=== PATIENT | female | born 1950 | race Caucasian/White ===

== ENCOUNTER → 2023-12-08 07:40 | Outpatient (CLI) | payer MEDICARE, SELFPAY ==
--- NOTE | 2023-12-08 07:42 | DI.MG.S_ITS ---
BILATERAL DIGITAL SCREENING MAMMOGRAM 3D/2D WITH CAD: 12/08/2023 CLINICAL: Routine screening. Family history of breast cancer. Comparison is made to exams dated: 06/12/2022 mammogram, 06/11/2021 mammogram, and 06/10/2020 mammogram - Outside facility. The breasts are heterogeneously dense, which may obscure small masses (category c / 51-75% glandular tissue). Current study was also evaluated with a Computer Aided Detection (CAD) system. There is a possible developing irregular high density asymmetry in the right breast posterior depth superior region seen on the mediolateral oblique view only. This is more prominent. No other significant masses, calcifications, or other findings are seen in either breast. IMPRESSION: INCOMPLETE: NEED ADDITIONAL IMAGING EVALUATION The possible developing irregular high density asymmetry in the right breast most likely is fibroglandular tissue and is indeterminate. Additional views with possible ultrasound are recommended. Based on the Tyrer Cuzick model (a risk assessment model) the patient's lifetime risk is 8.1% and her 10 year risk is 7.3%. According to the ACR, ACS, and NCCN guidelines, an annual breast MRI exam along with mammogram is recommended if the patient's lifetime risk is 20% or greater. This exam was interpreted at Station ID: [id number]. NOTE: For mammograms, a report in lay terms will be sent to the patient. Approximately 15% of breast malignancies will not be visualized mammographically. In the management of a palpable breast mass, a negative mammogram must not discourage biopsy of a clinically suspicious lesion. Electronically Signed By: Cher coleman/susan:12/08/2023 13:15:05 letter sent: Additional Imaging Needed ACR BI-RADS Category 0: Incomplete: Need Additional Imaging Evaluation 3340F
== END ==
PROVIDERS: PCP Family Medicine; Referring Provider Family Medicine; Visit Provider Family Medicine
DX: Z12.31 Encounter for screening mammogram for malignant neoplasm of breast (principal); Z80.3 Family history of malignant neoplasm of breast; R92.333 Mammographic heterogeneous density, bilateral breasts
CPT/HCPCS: 77063; 77067

== ENCOUNTER → 2023-12-20 08:28 | Outpatient (CLI) | payer MEDICARE, SELFPAY ==
--- NOTE | 2023-12-20 08:29 | DI.US.S_ITS ---
LIMITED ULTRASOUND OF RIGHT BREAST: 12/20/2023 CLINICAL: Patient returns today to evaluate a focal asymmetry in the right breast. Comparison is made to exams dated: 12/20/2023 mammogram, 12/08/2023 mammogram - [facility], 06/12/2022 mammogram, 06/11/2021 mammogram, 06/10/2020 mammogram, and 06/09/2019 mammogram - Outside facility. Real-time ultrasound of the right breast 10-11 o'clock region was performed. Bruce scale images of the real-time examination were reviewed. Confirmatory ultrasound demonstrates no sonographic abnormality at 10 and 11 o'clock, 6 cm from the nipple. IMPRESSION: NEGATIVE Superimposition of normal breast tissue with confirmatory negative ultrasound. No sonographic or mammographic evidence of malignancy. A 1 year screening mammogram is recommended. Findings and recommendations were conveyed to the patient during today's evaluation. This exam was interpreted at Station ID: [id number]. Electronically Signed By: January Clements M.D., Ph.D. eb/:12/20/2023 10:49:42 letter sent: Normal Exam ACR BI-RADS Category 1: Negative
--- NOTE | 2023-12-20 08:29 | DI.MG.S_ITS ---
UNILATERAL RIGHT DIGITAL DIAGNOSTIC MAMMOGRAM 3D/2D WITH ADDITIONAL VIEWS: 12/20/2023 CLINICAL: Additional evaluation requested from prior study. Comparison is made to exams dated: 12/08/2023 mammogram - [facility], 06/12/2022 mammogram, and 06/11/2021 mammogram - Outside facility. The breasts are heterogeneously dense, which may obscure small masses (category c / 51-75% glandular tissue). The asymmetry seen on recent screening mammogram did not persist with additional imaging and likely represents superimposition of normal breast tissue. No other significant masses, calcifications, or other findings are seen in the breast. IMPRESSION: INCOMPLETE: NEED ADDITIONAL IMAGING EVALUATION Probable superimposition of normal breast tissue. Recommend further evaluation with targeted breast ultrasound, which will immediately follow this exam. Based on the Tyrer Cuzick model (a risk assessment model) the patient's lifetime risk is 8.1% and her 10 year risk is 7.3%. According to the ACR, ACS, and NCCN guidelines, an annual breast MRI exam along with mammogram is recommended if the patient's lifetime risk is 20% or greater. This exam was interpreted at Station ID: [id number]. NOTE: For mammograms, a report in lay terms will be sent to the patient. Approximately 15% of breast malignancies will not be visualized mammographically. In the management of a palpable breast mass, a negative mammogram must not discourage biopsy of a clinically suspicious lesion. Electronically Signed By: January Clements M.D., Ph.D. eb/:12/20/2023 09:22:52 ACR BI-RADS Category 0: Incomplete: Need Additional Imaging Evaluation
== END ==
PROVIDERS: PCP Family Medicine; Referring Provider Family Medicine; Visit Provider Family Medicine
DX: R92.8 Other abnormal and inconclusive findings on diagnostic imaging of breast (principal); R92.333 Mammographic heterogeneous density, bilateral breasts
CPT/HCPCS: 76642; 77065; G0279

== ENCOUNTER → 2024-04-19 11:30 | Outpatient (CLI) | payer MEDICARE, SELFPAY ==
--- NOTE | 2024-04-19 11:31 | DI.RAD.S_ITS ---
PROCEDURE: XR HIP W PEL IF DONE RT 2V INDICATIONS: Upper back right hip pain; chronic low back pain TECHNIQUE: 2 views of the hip were acquired. COMPARISON: None. FINDINGS: Bones: No fractures or dislocations. No suspicious bony lesions. The visualized pelvic ring appears intact. Nonuniform joint space narrowing and osteophytic lipping of the acetabuli. Synovial herniation pit of the right femoral neck. Soft tissues: No suspicious soft tissue calcifications or masses. IMPRESSION: Mild bilateral hip osteoarthritis. Dictated by: Maxime Mcgovern M.D. on 04/19/2024 at 13:21 Approved by: Maxime Mcgovern M.D. on 04/19/2024 at 13:21
== END ==
PROVIDERS: PCP Family Medicine; Referring Provider Family Medicine; Visit Provider Family Medicine
DX: M54.9 Dorsalgia, unspecified (principal); M25.559 Pain in unspecified hip; G89.29 Other chronic pain; M16.0 Bilateral primary osteoarthritis of hip
CPT/HCPCS: 73502

== ENCOUNTER → 2024-04-20 07:00 | Outpatient (CLI) | payer MEDICARE, SELFPAY ==
[2024-04-20 07:29] LABS: Add Manual Diff / Slide Review NO; Basophils Absolute Auto 100 /uL (0-100); Basophils Percent Auto 1.5 % (0-2); Eosinophils Absolute Auto 100 /uL (0-450); Eosinophils Percent Auto 1.8 % (2-4); Hematocrit 36.4 % (36-46); Hemoglobin 12.3 g/dL (12.0-16.0); Lymphocytes Absolute Auto 1000 /uL (1100-4500); Lymphocytes Percent Auto 23.7 % (25-40); Mean Corpuscular HGB Conc 33.7 % (30-36); Mean Corpuscular Hemoglobin 32.4 PG (26-34); Mean Corpuscular Volume 96.2 fL (80-100); Monocytes Absolute Auto 400 /uL (0-900); Monocytes Percent Auto 9.8 % (3-14); Neutrophils Absolute Auto 2600 /uL (1500-7000); Neutrophils Percent Auto 63.2 % (50-75); Platelet Count 182 X10^3/uL (150-400); Red Blood Cell Count 3.79 X10^6/uL (4.0-5.2); Red Cell Distribution Width 13.4 % (11.6-14.8); White Blood Cell Count 4.1 X10^3/uL (4.5-11.0)
[2024-04-20 08:13] LABS: Alanine Aminotransferase 31 IU/L (<35); Albumin 4.2 g/dL (3.5-5.0); Albumin Globulin Ratio 1.9 (1.0-2.8); Alkaline Phosphatase 44 U/L (38-126); Aspartate Aminotransferase 35 IU/L (14-36); BUN Creatinine Ratio 25.3 (6-22); Bilirubin Total 0.6 mg/dL (0.2-1.3); Blood Urea Nitrogen 19 mg/dL (7-17); Calcium 8.8 mg/dL (8.4-10.2); Carbon Dioxide 24 mmol/L (22-32); Chloride 106 mmol/L (98-107); Cholesterol 199 mg/dL (140-199); Estimated Glomerular Filt Rate > 60 mL/min (>60); Globulin 2.2 g/dL (1.7-4.1); Glucose 104 mg/dL (80-110); HEMOLYSIS < 15 (0-50); Potassium 3.9 mmol/L (3.4-5.1); Sodium 136 mmol/L (137-145); Total Protein 6.4 g/dL (6.3-8.2); Triglycerides 74 mg/dL (35-150)
[2024-04-20 08:23] LABS: HDL Cholesterol 122 mg/dL (40-60); LDL Cholesterol Calculated 62 mg/dL (<100)
[2024-04-20 08:40] LABS: TSH w/ Reflex to FT4 2.26 uIU/mL (0.47-4.68)
== END ==
PROVIDERS: PCP Family Medicine; Referring Provider Family Medicine; Visit Provider Family Medicine
DX: Z00.00 Encounter for general adult medical examination without abnormal findings (principal); M54.9 Dorsalgia, unspecified; E03.9 Hypothyroidism, unspecified; G89.29 Other chronic pain; K21.9 Gastro-esophageal reflux disease without esophagitis; Z13.220 Encounter for screening for lipoid disorders; R03.0 Elevated blood-pressure reading, without diagnosis of hypertension
CPT/HCPCS: 36415; 80053; 80061; 84443; 85025

== ENCOUNTER → 2024-05-07 12:57 | Outpatient (CLI) | payer MEDICARE, SELFPAY ==
--- NOTE | 2024-05-07 12:59 | DI.MRI.S_ITS ---
PROCEDURE: MR HIP RT WO CON INDICATIONS: right hip pain TECHNIQUE: Noncontrast coronal T1 spin echo and STIR through the bony pelvis. Coronal and axial T2 fast spin echo with fat saturation, sagittal T1 spin echo, and oblique axial T2 fast spin echo with fat saturation through the hip. COMPARISON: Merged With [facility], CR, XR HIP W PEL IF DONE RT 2V, 04/19/2024, 11:38. FINDINGS: Image quality: Diagnostic Bones: Pelvic ring: No acute fracture. There is diffuse heterogeneity of the marrow signal Femoral head and neck: No fracture. No osteonecrosis. Focal cystic change at the proximal femoral neck, probably synovial herniation site versus enchondroma Ligamentum teres: Intact. Lumbar spine and sacrum: Lower lumbar Modic changes and degenerative disc changes. Tendons: Abductors: Moderate tendinopathy and partial-thickness tears Adductors and rectus abdominis: Intact. No pubic symphyseal edema. IT band: Intact. Iliopsoas: Mild insertional tendinopathy Hamstrings: Ielt-kr-pyvtimab partial tears and tendinopathy at the origin Rectus femoris: Intact. Joint: Joint space: Moderate arthrosis. No significant effusion Labrum: Circumferential degenerative changes, not well assessed on this non-arthrographic study Cartilage: Nwdk-qz-tlvfhcfp diffuse thinning. Soft tissues: Quadratus femoris: No edema or atrophy. Piriformis: Symmetric. Intrapelvic structures: Not well assessed on this study. There is a moderate rectal stool ball and gas. IMPRESSION: Moderate arthrosis of the hip. There is no acute edema to represent fracture. Moderate tendinopathy and partial-thickness tears of the abductor insertion. Tendinopathy and partial tears also seen of the iliopsoas insertion and hamstrings origin. Diffuse heterogeneity of the marrow signal throughout the pelvic ring, nonspecific, possibly senescent. Differential includes underlying hematologic condition. Probable degenerative changes of the labrum, not well assessed on this study. Partially seen lumbosacral degenerative changes. Moderate rectal stool ball, partially seen. Dictated by: Severo Mendoza M.D. on 05/08/2024 at 15:42 Approved by: Severo Mendoza M.D. on 05/08/2024 at 15:49
== END ==
PROVIDERS: PCP Family Medicine; Referring Provider Family Medicine; Visit Provider Family Medicine
DX: M16.11 Unilateral primary osteoarthritis, right hip (principal); S76.011A Strain of muscle, fascia and tendon of right hip, initial encounter; M25.551 Pain in right hip; M47.817 Spondylosis without myelopathy or radiculopathy, lumbosacral region
CPT/HCPCS: 73721

== ENCOUNTER → 2024-06-30 07:07 | Outpatient (CLI) | payer MEDICARE, SELFPAY ==
--- NOTE | 2024-06-30 07:08 | DI.MRI.S_ITS ---
PROCEDURE: MR LUMBAR SPINE WO CON INDICATIONS: LUMBAR RADICULOPATHY TECHNIQUE: Noncontrast sagittal T1 spin echo and T2 fast echo, sagittal STIR, and T2 fast spin echo through the lumbar spine. In cases with scoliosis, additional coronal T2 fast spin echo may be performed. COMPARISON: None. FINDINGS: Image quality: Excellent. Alignment and Curvature: Mild levocurvature the lower lumbar spine. Focal mild kyphosis at T12-L1. Bone Marrow: Multilevel degenerative endplate changes, most pronounced at L4-5 and L5-S1. Marrow is of normal overall signal. Mild chronic anterior wedging of T12. No acute vertebral body compression fractures. Spinal Cord: Conus medullaris terminates at the L1 level. Visualized cord demonstrates normal signal and size. Paraspinous Soft Tissues: No paravertebral masses. T12-L1: Disc desiccation. No central canal or neural foraminal stenosis. L1-L2: Disc desiccation and mild height loss. No central canal or neural foraminal stenosis. L2-L3: Disc desiccation and mild diffuse disc bulge. Facet arthropathy and thickening of ligamentum flavum. No central canal or neural foraminal stenosis. L3-L4: Disc desiccation and mild height loss. Diffuse disc bulge with small superimposed central disc protrusion. Facet arthropathy and thickening of ligamentum flavum. Moderate to severe central canal stenosis. Moderate right and mild left neural foraminal stenosis. L4-L5: Disc desiccation is severe height loss. Mild diffuse disc bulge. Facet arthropathy and thickening of ligamentum flavum. Mild central canal stenosis. Moderate to severe left and mild right neural foraminal stenosis. L5-S1: Disc desiccation. Facet arthropathy. No central canal or neural foraminal stenosis. IMPRESSION: 1. Multilevel degenerative changes of the lumbar spine as described above. 2. Moderate to severe central canal stenosis at L3-L4. 3. Moderate to severe left neural foraminal stenosis at L4-5. Dictated by: Graham Snyder M.D. on 06/30/2024 at 11:10 Approved by: Graham Snyder M.D. on 06/30/2024 at 11:14
== END ==
PROVIDERS: PCP Family Medicine; Referring Provider Orthopaedic Surgery; Visit Provider Orthopaedic Surgery
DX: M47.26 Other spondylosis with radiculopathy, lumbar region (principal); M47.27 Other spondylosis with radiculopathy, lumbosacral region; M48.061 Spinal stenosis, lumbar region without neurogenic claudication
CPT/HCPCS: 72148

== ENCOUNTER → 2025-01-23 13:16 | Outpatient (CLI) | payer MEDICARE, SELFPAY ==
--- NOTE | 2025-01-23 13:17 | DI.RAD.S_ITS ---
PROCEDURE: XR CERVICAL SPINE 4V OR 5V INDICATIONS: NECK PAIN TECHNIQUE: 5 views of the cervical spine acquired. COMPARISON: None. FINDINGS: Bones: No fractures or dislocations to the T1 level. Oblique images demonstrate mild foraminal stenosis at the right C3-4 through C6-7 levels and mild-moderate foraminal stenosis from left C3-4 through C6-7. No acute compression fractures. Moderate multilevel cervical spondylitic changes with degenerative endplate changes, endplate osteophyte formation, and disc space loss. Soft tissues: No prevertebral soft tissue swelling. IMPRESSION: Cervical spine without acute fracture or malalignment. Moderate multilevel cervical spondylosis most severe from C5-6 through C6-7. There is also bony neuroforaminal stenosis from C3-4 through C6-7. Dictated by: Lokesh Mckeon M.D. on 01/23/2025 at 15:58 Approved by: Lokesh Mckeon M.D. on 01/23/2025 at 16:01
== END ==
PROVIDERS: PCP Family Medicine; Referring Provider Physical Medicine & Rehabilitation; Visit Provider Physical Medicine & Rehabilitation
DX: M47.812 Spondylosis without myelopathy or radiculopathy, cervical region (principal); M48.02 Spinal stenosis, cervical region; M54.2 Cervicalgia
CPT/HCPCS: 72050

== ENCOUNTER → 2025-02-06 15:07 | Outpatient (CLI) | payer MEDICARE, SELFPAY ==
--- NOTE | 2025-02-06 15:09 | DI.MRI.S_ITS ---
PROCEDURE: MR CERVICAL SPINE WO CON INDICATIONS: neck pain and LUE paresthesia TECHNIQUE: Noncontrast sagittal T1 spin echo and T2 fast spin echo, sagittal STIR, foraminal oblique sagittal T2 fast spin echo, and axial gradient echo or T2 fast spin echo through the cervical spine. COMPARISON: [facility], CR, XR CERVICAL SPINE 4V OR 5V, 01/23/2025, 13:13. FINDINGS: Image quality: Diagnostic Alignment and Curvature: There is overall straightening of the normal cervical lordosis. Mild grade 1 anterolisthesis is seen at the C7-T1 level. Bone Marrow: Marrow demonstrates normal overall signal. Spinal Cord: Visualized spinal cord has normal size and signal. No cerebellar tonsillar herniation. Paraspinous Soft Tissues: No paravertebral masses. Prevertebral soft tissues are normal in thickness. C2-C3: Mild loss of disc height is seen. Loss of disc signal is seen. A mild degree of generalized disc osteophyte complex is seen. There is a mild central disc osteophyte protrusion. Mild facet joint hypertrophy is seen. No neural foraminal narrowing is seen. Mild to moderate central canal narrowing is seen. C3-C4: At least moderate loss of disc height and disc signal can be seen. Reactive marrow endplate changes are seen which are hypointense on T1-weighted imaging and hyperintense on T2 weighted imaging, which is most consistent with edema (Modic type I changes). Moderate disc osteophyte complex is seen with a central/left disc osteophyte protrusion. Moderate facet joint hypertrophy is seen. There is moderate to severe left-sided and at least moderate right-sided neural narrowing. Moderate central canal narrowing is seen. There is associated mass effect upon the ventral spinal cord. C4-C5: At least moderate loss of disc height and disc signal can be seen. Moderate generalized disc osteophyte complex is seen. There is a superimposed central disc osteophyte protrusion. There is afwo-kb-[id number] right-sided and at least moderate left-sided facet hypertrophy. There is moderate to severe left-sided and at least moderate right-sided neural narrowing. Moderate central canal narrowing is seen. There is associated mass effect upon the ventral spinal cord. C5-C6: At least moderate loss of disc height and disc signal can be seen. Reactive marrow endplate changes are seen, which demonstrate mixed T1 weighted and T2- weighted signal, and are attributed to a combination of edema and fatty metaplasia (Modic type I and Modic type II changes). At least moderate disc osteophyte complex is seen which is eccentric to the right. Moderate facet joint hypertrophy is seen. Moderate to severe bilateral neural foraminal narrowing can be seen, left worse than right. Moderate central canal narrowing is seen. There is associated mass effect upon the ventral spinal cord. C6-C7: Moderate loss of disc height is seen. Loss of disc signal is seen. Moderate generalized disc osteophyte complex is seen. There is a superimposed central disc osteophyte protrusion. Mild facet joint hypertrophy is seen. Moderate bilateral neural foraminal narrowing is seen. Moderate central canal narrowing is seen. C7-T1: Moderate loss of disc height is seen. Loss of disc signal is seen. A mild degree of generalized disc osteophyte complex is seen. Mild facet joint hypertrophy is seen. There is moderate left-sided and no right-sided neural narrowing. No significant central canal narrowing is seen. IMPRESSION: Multiple levels of significant cervical spine degenerative change can be seen. Dictated by: Burak Patricio M.D. on 02/06/2025 at 15:41 Approved by: Burak Patricio M.D. on 02/06/2025 at 15:47
== END ==
LOC: MRI 15:09
PROVIDERS: PCP Family Medicine; Referring Provider Physical Medicine & Rehabilitation; Visit Provider Physical Medicine & Rehabilitation
DX: M50.11 Cervical disc disorder with radiculopathy, high cervical region (principal); M48.02 Spinal stenosis, cervical region; M48.03 Spinal stenosis, cervicothoracic region; M47.22 Other spondylosis with radiculopathy, cervical region; M47.23 Other spondylosis with radiculopathy, cervicothoracic region
CPT/HCPCS: 72141

== ENCOUNTER → 2025-02-08 09:45 | Outpatient (CLI) | payer MEDICARE, SELFPAY ==
--- NOTE | 2025-02-08 09:48 | DI.RAD.S_ITS ---
PROCEDURE: XR CERVICAL SPINE 2V OR 3V INDICATIONS: LISTHESIS TECHNIQUE: Flexion and extension view(s) of the cervical spine were acquired. COMPARISON: [facility], CR, XR CERVICAL SPINE 4V OR 5V, 01/23/2025, 13:13. [facility], MR, MR CERVICAL SPINE WO CON, 02/06/2025, 15:11. FINDINGS: Bones: No fractures or dislocations to the T1 level. No suspicious bony lesions. Mild grade 1 anterolisthesis is seen at the C7-T1 level. On these flexion extension views, there is limited range of motion, without abnormal subluxation, including at C7-T1. Focal degenerative change is seen involving the C1-C2 interface anteriorly. There is moderate disc space narrowing seen at C3-C4 and C4-C5, with at least moderate disc space narrowing at C5-C6 and C6-C7. Endplate irregularity and sclerosis can be seen at C5-C6 and C6-C7. Soft tissues: No prevertebral soft tissue swelling. IMPRESSION: Mild grade 1 anterolisthesis is seen at C7-T1, without abnormal subluxation at this level. Limited range of motion, without abnormal subluxation seen elsewhere. Cervical spine degenerative changes are seen which are worst inferiorly. Dictated by: Burak Patricio M.D. on 02/10/2025 at 19:18 Approved by: Burak Patricio M.D. on 02/10/2025 at 19:20
== END ==
PROVIDERS: Family Provider Family Medicine; PCP Family Medicine; Referring Provider Family Medicine; Visit Provider Physical Medicine & Rehabilitation
DX: M43.13 Spondylolisthesis, cervicothoracic region (principal); M48.02 Spinal stenosis, cervical region
CPT/HCPCS: 72040

== ENCOUNTER → 2025-03-03 08:08 | Outpatient (CLI) | payer MEDICARE, SELFPAY ==
--- NOTE | 2025-03-03 08:09 | DI.MG.S_ITS ---
MM screening mammo BI: 03/03/2025. BI-RADS: 1 CLINICAL: 74-year old female for bilateral screening mammogram. Tyrer-Cuzick lifetime risk of 5.5%. No personal or first-degree family history of breast cancer. The patient had prior bilateral breast biopsies. PRIOR EXAMS 12/08/2023, outside priors dated 06/12/2022, 06/11/2021, 06/10/2020. MAMMOGRAPHY TECHNIQUE: 2D and 3D (tomosynthesis) digital mammographic views obtained, with additional images as needed for full coverage. Current study was also evaluated with a Computer Aided Detection (CAD) system. DENSITY C. The breasts are heterogeneously dense, which may obscure small masses. MAMMOGRAPHY FINDINGS Bilateral: No suspicious mass, asymmetry, microcalcification, or other abnormality seen. IMPRESSION: * No evidence of malignancy. RECOMMENDATIONS Bilateral * Annual screening mammography. OVERALL ASSESSMENT CATEGORY BI-RADS-1: Negative. The [employer] recommends annual screening mammography beginning at age 40 for women with average risk of breast cancer. ELECTRONICALLY SIGNED: Milka Troncoso M.D. on 03/05/2025 at 08:31:20 AM PT Interpreting Station ID: [id number]
== END ==
PROVIDERS: Family Provider Family Medicine; PCP Family Medicine; Referring Provider Family Medicine; Visit Provider Family Medicine
DX: Z12.31 Encounter for screening mammogram for malignant neoplasm of breast (principal); R92.333 Mammographic heterogeneous density, bilateral breasts
CPT/HCPCS: 77063; 77067